=== PATIENT | female | born 1940 | race Caucasian/White ===

== ENCOUNTER 2016-12-18 09:51 | Emergency (ER) | payer OTHER ==
[~2016-12-18] VITALS: Ht 157.5 cm; Wt 69.4 kg
--- NOTE | ~2016-12-18 | EKG ---
[address] [address] ELECTROCARDIOGRAM REPORT Name: VANDANA MARIE [facility] [id number] Admission: 12/18/16 Attend Phys: Discharge: 12/18/16 Date of : 44 Report #: [id number] THIS REPORT FOR: //name// [facility] ED Test Date: 2016-12-18 Test Time: 09:48:41 Pat Name: VANDANA MARIE Department: Room: Gender: F Turner Machine Operator: SHEA : 1940 Requested By: Joni Medina Order Number: [id number] MD: Phoenix Bartholomew Measurements Intervals [place] Rate: 55 P: 91 [place]: 165 QRS: 72 QRSD: 93 T: 49 QT: 456 QTc: 437 Interpretive Statements Sinus rhythm Compared to ECG 08/29/2013 11:15:14 Atrial premature complex(es) no longer present Electronically Signed On 12-20-2016 13:09:37 CDT by Phoenix Bartholomew [email or web address] <ELECTRONICALLY SIGNED> By: Phoenix Bartholomew MD, [facility] 12/20/16 1309 Phoenix Bartholomew MD, [facility] /EPI
[~2016-12-18 09:51] MED LIST: ACETAMINOPHEN-1 EAC1 PO; AUGMENTIN 875-1 EACH PO; AUGMENTIN 875875 M1 PO; AZITHROMYCIN 2250 MG PO; ENBREL50 MG/1 M1 SQ; HYDROXYZINE HCL25 M2 GT; NORCO 5-325 TA1 EACH PO; PROPRANOLOL 1010 M1 PO; SYNTHROID25 MCG PO; TUSSIONEX PENN473 ML PO
[2016-12-18 11:01] LABS: ABSOLUTE NEUTROPHILS 4.4 thou/uL (1.4-8.2); BASOPHILS 0.6 % (0.0-2.0); EOSINOPHILS 3.2 % (0.0-3.0); HEMATOCRIT 40.6 % (37.0-47.0); HEMOGLOBIN 13.8 gm/dL (12.0-15.0); MANUAL DIFF NO; MCH 31.8 pg (26.0-34.0); MCHC 33.9 g/dL (28.0-37.0); MCV 93.6 fL (80.0-100.0); PLATELET COUNT 175 thou/uL (150-400); POLYS 73.2 % (36.0-66.0); RBC 4.34 mil/uL (4.20-5.00); RDW 14.4 % (10.5-14.5)
[2016-12-18 11:53] LABS: ANION GAP 5 mmol/L (7-16); BUN 14 mg/dL (7-18); CALCIUM 8.5 mg/dL (8.5-10.1); CHLORIDE 104 mmol/L (98-107); CO2 31 mmol/L (21-32); CREATININE 0.9 mg/dL (0.6-1.0); GLUCOSE 108 mg/dL (74-106); POTASSIUM 3.8 mmol/L (3.5-5.1); SODIUM 140 mmol/L (136-145)
[2016-12-18 12:00] LABS: ALBUMIN 3.6 g/dL (3.4-5.0); ALKALINE PHOSPHATASE 60 U/L (46-116); SGOT 13 U/L (15-37); SGPT 19 U/L (30-65); TOTAL BILIRUBIN 0.6 mg/dL (<0.1-1.0); TOTAL PROTEIN 7.1 g/dL (6.4-8.2); TROPONIN-I < 0.04 ng/mL (<0.04-0.07)
[2016-12-18] MEDS ORDERED: SENOKOT-S1 TA1 PO (13:01)
[2016-12-18 13:24] VITALS: BP 99/56
== END 2016-12-18 13:25 | disposition home or self-care (01) ==
LOC: ER 09:51
PROVIDERS: Physician Assistant
DX: R10.13 Epigastric pain (principal); R00.2 Palpitations; E89.0 Postprocedural hypothyroidism; F10.99 Alcohol use, unspecified with unspecified alcohol-induced disorder; Z90.49 Acquired absence of other specified parts of digestive tract

== ENCOUNTER 2017-03-24 09:31 | Emergency (ER) | payer OTHER ==
[~2017-03-24] VITALS: Ht 157.5 cm; Wt 61.2 kg
[~2017-03-24 09:31] MED LIST changes: +SENOKOT-S1 TA1 PO
[2017-03-24 10:17] LABS: ABSOLUTE NEUTROPHILS 4.9 thou/uL (1.4-8.2); BASOPHILS 0.6 % (0.0-2.0); EOSINOPHILS 1.6 % (0.0-3.0); HEMATOCRIT 39.8 % (37.0-47.0); HEMOGLOBIN 13.3 gm/dL (12.0-15.0); LYMPHOCYTES 12.6 % (24.0-44.0); MANUAL DIFF NO; MCH 31.6 pg (26.0-34.0); MCHC 33.5 g/dL (28.0-37.0); MCV 94.2 fL (80.0-100.0); MONOCYTES 8.4 % (1.0-8.0); PLATELET COUNT 201 thou/uL (150-400); POLYS 76.8 % (36.0-66.0); RBC 4.22 mil/uL (4.20-5.00); WBC 6.4 thou/uL (4.0-11.0)
[2017-03-24 10:28] LABS: CALCIUM 8.7 mg/dL (8.5-10.1); CREATININE 0.9 mg/dL (0.6-1.0); POTASSIUM 4.1 mmol/L (3.5-5.1)
[2017-03-24 10:34] LABS: ALBUMIN 3.7 g/dL (3.4-5.0); TOTAL BILIRUBIN 0.3 mg/dL (<0.1-1.0); TOTAL PROTEIN 7.4 g/dL (6.4-8.2)
[2017-03-24] MEDS ORDERED: DOXYCYCLINE 10100 MG PO (10:48)
[2017-03-24 11:08] VITALS: BP 128/48
== END 2017-03-24 11:12 | disposition home or self-care (01) ==
LOC: ER 09:31
PROVIDERS: Emergency Medicine
DX: L03.116 Cellulitis of left lower limb (principal); L03.115 Cellulitis of right lower limb; Z90.49 Acquired absence of other specified parts of digestive tract; F10.99 Alcohol use, unspecified with unspecified alcohol-induced disorder

== ENCOUNTER → 2017-03-25 | Outpatient (CLI) | payer OTHER ==
[~2017-03-25] MED LIST changes: +DOXYCYCLINE 10100 MG PO
== END ==
LOC: HYPER 07:13
DX: L97.812 Non-pressure chronic ulcer of other part of right lower leg with fat layer exposed (principal); L97.822 Non-pressure chronic ulcer of other part of left lower leg with fat layer exposed; Z85.72 Personal history of non-Hodgkin lymphomas; Z72.89 Other problems related to lifestyle

== ENCOUNTER → 2017-04-08 | Outpatient (CLI) | payer OTHER ==
[~2017-04-08] MED LIST changes: +LUNESTA2 MG PO; +NORCO 7.5-3251 EACH PO; +SYNTHROID125 MCG PO
== END ==
LOC: HYPER 06:55
DX: L97.812 Non-pressure chronic ulcer of other part of right lower leg with fat layer exposed (principal); L97.822 Non-pressure chronic ulcer of other part of left lower leg with fat layer exposed; Z72.89 Other problems related to lifestyle

== ENCOUNTER 2017-04-28 11:44 | Inpatient (IN) | payer OTHER ==
[~2017-04-28] VITALS: Ht 157.5 cm; Wt 69.3 kg
--- NOTE | ~2017-04-28 | HC ---
[facility] [place] [address] CONSULTATION Name: SANKET OCHOAMIGUELINAVANDANA KOHLER Room #: 416-P ADM IN M.R.#: [id number] Admission: 04/28/17 Attend Phys: Elie Hughes DO Discharge: Date of : 42 Report #: [id number] THIS REPORT FOR: //name// CC: KINDRA physician/PCP Elie Hughes REASON FOR CONSULTATION: I was asked to evaluate concerning cat bite and infection to the right wrist. HISTORY OF PRESENT ILLNESS: The patient is a 76-year-old with underlying history of cutaneous T-cell lymphoma, undergoing chemotherapy for such. She was bitten by her indoor cat 4 days ago. Developed increased pain and swelling and was seen in the emergency room yesterday and placed on Augmentin. It was recommended that she stay for further IV antibiotic therapy, but the patient refused and went home to return today for further care. No fever or chills, although she has had some sweats. Increased pain and swelling in the right wrist. The cat has all of the charts. The patient has remote tetanus vaccination. She is a nonsmoker with no significant alcohol intake. ALLERGIES: None known. MEDICATIONS: Include Zosyn. She was on Augmentin yesterday. Also takes daily chemotherapy for her cutaneous T-cell lymphoma. PAST MEDICAL HISTORY: Lymphoma, dysrhythmia, did not know the name of it. Peripheral vascular disease, status post stenting. She developed a pseudoaneurysm in her right groin that was evaluated and corrected approximately 3 weeks ago. REVIEW OF SYSTEMS: No cardiopulmonary, GI, or complaints. PHYSICAL EXAMINATION: VITAL SIGNS: Afebrile and hemodynamically stable. GENERAL: She was alert, cooperative, and pleasant, in no acute distress. SKIN: Multiple erythematous plaques to her upper extremities and lower extremities. She had ulcerations involving both pretibial lower legs, which are chronic. The right upper extremity had 2+ swelling about the hand and wrist along with forearm with surrounding cellulitis. Puncture lawson in the distal forearm. Most of her tenderness is over the right wrist with some fluctuance in the region. Pulses in the wrist were normal. Sensation in the fingers normal. Capillary refill normal. No axillary adenopathy. CHEST: Clear. HEART: Regular without murmur. ABDOMEN: Soft and nontender. LABORATORY STUDIES: Sedimentation rate 59, sodium 139, potassium 4.6, bicarbonate 27, creatinine 0.7. Lactate 0.8. Hemoglobin 11.3, white count 5.7, [address] [address] CONSULTATION Name: VANDANA MARIE Room #: 416-[facility] IN [facility]#: [id number] Admission: 04/28/17 Attend Phys: Elie Hughes DO Discharge: Date of : 42 Report #: [id number] platelet count 233,000. Blood cultures are negative today. X-ray of the wrist, no acute changes. She does have some degenerative arthritis. IMPRESSION: A 76-year-old immunosuppressed, undergoing treatment for cutaneous T-cell lymphoma, now with cat bite and I am concerned with tenosynovitis involving the right hand and forearm. The bite does not appear contiguous with her wrist joint. Recommend continuing IV antibiotic therapy. Zosyn was started today and we will continue this through the next 24 hours. We will obtain MRI scan of the right upper extremity to evaluate for abscess and further evaluate for tenosynovitis. We will vaccinate for tetanus and elevate the arm along with heat. If fluid collection is evident, we will need orthopedic surgery involvement. <ELECTRONICALLY SIGNED> By: Mir Bar MD 04/29/17 1208 [id number] Mir Bar MD /nt
--- NOTE | ~2017-04-28 | S ---
[facility] [address] [facility] [address] SURGICAL PATH RPT PROCEDURE Name: SANKET OCHOAALBERTTanmayVANDANA Room #: 416-P ADM IN M.R.#: [id number] Admission: 04/28/17 Date of : 44 Discharge: Report #: [id number] Path Case #: [id number] PATHOLOGY REPORT COLLECTION DATE: 04/30/2017 RECEIVED DATE: 04/30/2017 SUBMITTING PHYS: Dr. Mariangel Leon OTHER PHYS: Dr. Elie Hughes SPECIMEN(S) RECEIVED: A.Right dorsal forearm tenosynovitis * * * * * * * * * * * * FINAL DIAGNOSIS: Tissue, right dorsal forearm, debridement: - Marked acute inflammation along with abscess formation, history of cat bite. (IUV:miguel; 05/03/2017) PATHOLOGIST: Alyson Ortiz M.D. REPORT ELECTRONICALLY SIGNED BY: Alyson Ortiz M.D. DATE/TIME: 05/03/2017 14:46 * * * * * * * * * * * * GROSS PATHOLOGY: The specimen is received in formalin, labeled "Vandana Marie, tissue right dorsal forearm," and consists of multiple (more than 10) fragments of moreland-light brown soft tissue measuring 3.0 x 2.3 x 0.4 cm in aggregate dimensions. They are entirely submitted in cassette A1. (SDY; 04/30/2017) CLINICAL HISTORY: History of cat bite, T-cell lymphoma, tenosynovitis INITIAL CPT CODE(S): A; 52294 Professional services performed by [facility] at [facility] [address] [place], [place] [address] Technical services performed by [facility] at [address] [place] [address], [address] [address]. [facility] [address] [place] [address] SURGICAL PATH RPT PROCEDURE Name: VANDANA MARIE Room #: 416-P ADM IN M.R.#: [id number] Admission: 04/28/17 Date of : 44 Discharge: Report #: [id number] Path Case #: [id number] [facility] [address] [address] PHONE: [phone] DIRECTOR: Eleazar Moyer M.D. * * * END OF REPORT * * *
--- NOTE | ~2017-04-28 | O ---
[facility] [place] [address] OPERATIVE REPORT Name: VANDANA AMRIE Room #: 416-P [facility] IN M.R.#: [id number] Admission: 04/28/17 Attend Phys: Elie Hughes DO Discharge: Date of : 42 Report #: [id number] THIS REPORT FOR: //name// CC: KINDRA physician/PCP Elie Hughes DATE OF SERVICE: 04/30/2017 PREOPERATIVE DIAGNOSIS: Right dorsal forearm cellulitis/tenosynovitis. POSTOPERATIVE DIAGNOSIS: Right dorsal forearm cellulitis/tenosynovitis. PROCEDURE PERFORMED: Right dorsal forearm debridement and extensor compartment debridement specifically the second, third and fourth. SURGEON: Mariangel Leon MD. ANESTHESIA: General mask anesthesia. ESTIMATED BLOOD LOSS: Minimal. TOURNIQUET TIME: 19 minutes. COMPLICATIONS: None. CONDITION: Stable. DISPOSITION: To recovery room. SPECIMENS: Sent to pathology and microbiology. INDICATIONS: The patient is a 76-year-old female with the abovementioned diagnosis. She had a definite fluid collection and tenosynovitis with a cellulitis noted on MRI. The risks, benefits, alternatives, complications were discussed including but were not limited to infection, damage to blood vessels or nerves, inability to completely resolve the infection necessitating more surgery. Informed consent was obtained. The correct extremity was identified and labeled by myself. After verbal confirmation of the patient, as well as visual confirmation, a signed informed consent obtained. DESCRIPTION OF PROCEDURE: The patient was brought back to the operating room, placed on the operating table in supine position. She did not receive preoperative antibiotics. She did receive 2 grams of Ancef after cultures were obtained. The right upper extremity was sterilely prepped and draped in the usual fashion. A final timeout was taken to verify the correct patient, operative procedure, and operative site, all concurred. The arm was elevated [address] [address] OPERATIVE REPORT Name: VANDANA MARIE Room #: 416-P [facility] IN .R.#: [id number] Admission: 04/28/17 Attend Phys: Elie Hughes DO Discharge: Date of : 42 Report #: [id number] but was not exsanguinated and the tourniquet inflated. The entire procedure was done with the aid of 3.5 times loupe magnification. Next, approximately a 5 cm incision was made over the area of most prominent swelling at Ricardo tubercle. Dissection was carried down through the subcutaneous tissue with tenotomy scissors. There was a significant amount of inflammatory fluid around the tendon sheath. The third compartment was identified and incised. The tendon was debrided. There was a significant amount of tenosynovium that was debrided. The fourth compartment was identified and incised and portion of the second. The tendons were thoroughly debrided. There was a yellowish type tissue around them but most likely consistent with tenosynovitis. Once the area was thoroughly debrided, the area was thoroughly irrigated with 2 L of antibiotic saline. The wound was then closed over a deep drain. The deep drain was sutured in. The wound was closed with 4-0 nylon suture. The wound was infiltrated with approximately 5 mL of 0.25% Marcaine. The wound was dressed with Adaptic and sterile gauze. She was placed in a bulky compressive dressing and a volar slab splint. All fingers were pink with brisk capillary refill at the conclusion of the case. After deflation of tourniquet, all sponge, needle counts were correct. The patient transferred to postoperative recovery room in stable condition. By: 1533 1624 Mariangel Leon MD /nt
--- NOTE | ~2017-04-28 | HC ---
[facility] [place] [address] CONSULTATION Name: VANDANA MARIE Room #: 416-P ADM IN M.R.#: [id number] Admission: 04/28/17 Attend Phys: Elie Hughes DO Discharge: Date of : 42 Report #: [id number] THIS REPORT FOR: //name// CC: KINDRA physician/PCP Elie Hughes DATE OF SERVICE: 04/29/2017 REASON FOR CONSULTATION: Right upper extremity cellulitis, possible tenosynovitis. HISTORY OF PRESENT ILLNESS: The patient is a 76-year-old right-hand dominant female who presented to the Emergency Department on the date of admission complaining of swelling and redness and pain in her right dorsal hand and forearm, who was bitten by her cat on Wednesday and reporting increased redness, swelling and pain predominantly since for a few days. She originally was seen in the Emergency Department on 09/25/2016 and apparently left against advice. She reported she needed to get home to get stuff ready for her to be able to stay in the hospital. She reports the redness potentially has improved a very small amount since her admission yesterday and the IV antibiotics that ensued. She reports dorsal hand and wrist pain and pain with movement of her fingers. She takes p.o. chemotherapy for T-cell lymphoma. She spoken with her oncologist who recommended she skipped a treatment. She also has open sores on her bilateral lower extremities for 2 months and she sees Dr. Elizondo at the wound care clinic. REVIEW OF SYSTEMS: CONSTITUTIONAL: Denies any fevers or chills. NEUROLOGIC: Denies numbness or tingling. MUSCULOSKELETAL: See HPI. PAST MEDICAL HISTORY: Significant for T-cell lymphoma, cardiac arrhythmia. ALLERGIES: No known drug allergies. SOCIAL HISTORY: Denies smoking or drinking alcohol. She does not use any ambulatory aids. She is right hand dominant. Lives by herself, has a cat. HOME MEDICATIONS: Include metoprolol, hydrocodone, clopidogrel, levothyroxine, zolpidem, propranolol, and Lunesta. PAST SURGICAL HISTORY: She has had a hysterectomy and thyroid procedure. PHYSICAL EXAMINATION: GENERAL: The patient is alert and oriented. She interacts appropriately. She is a well-developed, well-nourished female in no acute distress. [address] [address] CONSULTATION Name: VANDANA MARIE Room #: 416-P [facility] IN M.R.#: [id number] Admission: 04/28/17 Attend Phys: Elie Hughes DO Discharge: Date of : 42 Report #: [id number] VITAL SIGNS: Most recent vital signs show temperature of 36.1, heart rate 76, respiration rate 18, blood pressure 99/59. EXTREMITIES: Examination of her right upper extremity, she has a significant amount of dorsal edema to the wrist and forearm appears to be centered at the second and third compartments just at the level of the wrist. She is distally neurovascularly intact. She has a 2+ radial pulse. She has two small puncture wounds volarly on her forearm with no surrounding erythema. She does appear to have a fluid collection dorsally as above-mentioned. She is able to move her fingers, flexion and extension is intact, although not full due to pain. The area of erythema extends approximately 15 x 5 cm. There is no tenderness to palpation at her elbow. No significant pain with wrist motion. LABORATORY STUDIES: Done on 04/29/2017 show white blood cell count of 4.8, hemoglobin 11, hematocrit 32.4, platelet count 216. Sedimentation rate done on 04/28/2017 is elevated at 59. Her basic metabolic panel is grossly normal except for a CRP at 86, which is significantly elevated. IMAGING STUDIES: MRI was reviewed as well as the report was reviewed, which did show dorsal extensor tenosynovitis, predominantly within the second and third compartment also to a lesser degree of the fourth compartment, no osteomyelitis or evidence of septic arthritis is noted. IMPRESSION AND PLAN: Right dorsal forearm and wrist cellulitis with extensor tenosynovitis. I discussed the diagnosis as well as treatment options. We discussed the option of taking her to surgery tonight to open up the area making an incision and clean out any infection. We also discussed possibility of observation overnight and putting her on to the schedule tomorrow morning. I did discuss that I will be leaving town and if one of my partners can potentially take over her care, but I would prefer to reevaluate her and put her on the schedule for tomorrow morning, in that way I can take care of her if she needs operative treatment. We discussed the risks, benefits in terms of complications including inability to resolve the infection and wound healing problems predominantly. I will allow her to eat and drink today and then keep her n.p.o. after midnight. She is tentatively on the surgery schedule for tomorrow, Wednesday at 7:30 in the morning. I will also hold her Plavix tonight. Questions were encouraged and answered to the best of my ability. Again, I will evaluate her first thing in the morning. By: 1650 0435 Mariangel Leon MD /nt
--- NOTE | ~2017-04-28 | EKG ---
[address] [address] ELECTROCARDIOGRAM REPORT Name: VANDANA MARIE Room #: 416- ADM IN M.R.#: [id number] Admission: 04/28/17 Attend Phys: Elie Hughes DO Discharge: Date of : 42 Report #: [id number] THIS REPORT FOR: //name// [facility] Test Date: 2017-04-30 Test Time: 07:38:06 Pat Name: VANDANA MARIE Department: Room: 416 Gender: F Training And Development Assistant: STEVE : 1940 Requested By: Mariangel Leon Order Number: [id number] MD: Phoenix Bartholomew Measurements Intervals [place] Rate: 71 P: 59 [place]: 163 QRS: 75 QRSD: 89 T: 35 QT: 416 QTc: 453 Interpretive Statements Sinus rhythm Normal tracing Compared to ECG 12/18/2016 09:48:41 No significant changes Electronically Signed On 04-30-2017 7:52:55 SHAPER OPERATOR by Phoenix Bartholomew [email or web address] <ELECTRONICALLY SIGNED> By: Phoenix Bartholomew MD, [facility] 04/30/17 0752 7 Phoenix Bartholomew MD, [facility] /EPI
[~2017-04-28 11:44] MED LIST changes: +AMBIEN 5 MG TABL5 M1 PO; +AUGMENTIN 500-1 EACH PO; +HYDROCODON-ACE1 EAC8 PO; +PLAVIX 75 MG TA75 M1 PO; +TOPROL XL25 MG PO
[2017-04-28 11:45] VITALS: BP 106/61
[2017-04-28 12:38] LABS: ABSOLUTE NEUTROPHILS 4.2 thou/uL (1.4-8.2); BASOPHILS 0.5 % (0.0-2.0); EOSINOPHILS 2.6 % (0.0-3.0); HEMATOCRIT 34.1 % (37.0-47.0); HEMOGLOBIN 11.3 gm/dL (12.0-15.0); LYMPHOCYTES 12.7 % (24.0-44.0); MCH 30.8 pg (26.0-34.0); MCHC 33.2 g/dL (28.0-37.0); MCV 92.9 fL (80.0-100.0); MONOCYTES 10.6 % (1.0-8.0); PLATELET COUNT 233 thou/uL (150-400); POLYS 73.6 % (36.0-66.0); RBC 3.68 mil/uL (4.20-5.00); RDW 13.8 % (10.5-14.5); WBC 5.7 thou/uL (4.0-11.0)
[2017-04-28 13:00] LABS: MANUAL DIFF NO
[2017-04-28 13:14] LABS: CALCIUM 8.5 mg/dL (8.5-10.1); CREATININE 0.7 mg/dL (0.6-1.0)
[2017-04-28 13:15] LABS: POTASSIUM 4.6 mmol/L (3.5-5.1)
[2017-04-28 13:37] VITALS: BP 106/61
[2017-04-28 14:04] VITALS: BP 108/59
[2017-04-28 14:30] VITALS: BP 121/54
[2017-04-28 20:23] VITALS: BP 84/51
[2017-04-29 00:01] VITALS: BP 83/51
[2017-04-29 03:15] VITALS: BP 100/53
[2017-04-29 08:00] VITALS: BP 100/67
[2017-04-29 09:10] LABS: ABSOLUTE NEUTROPHILS 3.2 thou/uL (1.4-8.2); BASOPHILS 0.9 % (0.0-2.0); EOSINOPHILS 3.9 % (0.0-3.0); HEMATOCRIT 32.4 % (37.0-47.0); LYMPHOCYTES 18.3 % (24.0-44.0); MANUAL DIFF NO; MCH 31.5 pg (26.0-34.0); MCV 92.5 fL (80.0-100.0); MONOCYTES 11.5 % (1.0-8.0); PLATELET COUNT 216 thou/uL (150-400); POLYS 65.4 % (36.0-66.0); RBC 3.51 mil/uL (4.20-5.00); RDW 13.7 % (10.5-14.5); WBC 4.8 thou/uL (4.0-11.0)
[2017-04-29 09:20] LABS: CALCIUM 8.2 mg/dL (8.5-10.1); CREATININE 0.6 mg/dL (0.6-1.0); POTASSIUM 3.7 mmol/L (3.5-5.1)
[2017-04-29 11:35] VITALS: BP 99/59
[2017-04-29 16:00] VITALS: BP 91/42
[2017-04-29 20:14] VITALS: BP 91/72
[2017-04-30] VITALS (10 sets, daily range): BP systolic 96–120; BP diastolic 36–76
[2017-04-30 04:24] LABS: HEMATOCRIT 31.3 % (37.0-47.0); HEMOGLOBIN 10.4 gm/dL (12.0-15.0); MCH 30.9 pg (26.0-34.0); MCHC 33.1 g/dL (28.0-37.0); MCV 93.4 fL (80.0-100.0); PLATELET COUNT 212 thou/uL (150-400); RBC 3.35 mil/uL (4.20-5.00); RDW 13.8 % (10.5-14.5)
[2017-04-30 04:34] LABS: MANUAL DIFF YES
[2017-04-30 04:35] LABS: CALCIUM 7.4 mg/dL (8.5-10.1); CREATININE 0.8 mg/dL (0.6-1.0); POTASSIUM 3.9 mmol/L (3.5-5.1)
[2017-04-30 06:21] LABS: ABSOLUTE NEUTROPHILS 2.5 thou/uL (1.4-8.2); TOTAL CELL COUNT 100
[2017-05-01] VITALS: BP 90/55
[2017-05-01 05:00] VITALS: BP 93/50
[2017-05-01 06:29] LABS: ABSOLUTE NEUTROPHILS 2.7 thou/uL (1.4-8.2); BASOPHILS 0.9 % (0.0-2.0); EOSINOPHILS 6.2 % (0.0-3.0); HEMOGLOBIN 10.2 gm/dL (12.0-15.0); LYMPHOCYTES 15.4 % (24.0-44.0); MCH 30.9 pg (26.0-34.0); MCV 93.6 fL (80.0-100.0); PLATELET COUNT 213 thou/uL (150-400); POLYS 66.5 % (36.0-66.0); RBC 3.31 mil/uL (4.20-5.00); RDW 13.6 % (10.5-14.5); WBC 4.1 thou/uL (4.0-11.0)
[2017-05-01 06:31] LABS: MANUAL DIFF NO
[2017-05-01 06:35] LABS: CALCIUM 7.7 mg/dL (8.5-10.1); CREATININE 0.6 mg/dL (0.6-1.0); POTASSIUM 3.8 mmol/L (3.5-5.1)
[2017-05-01 08:00] VITALS: BP 108/56
[2017-05-01 15:04] VITALS: BP 111/54
[2017-05-01 21:30] VITALS: BP 136/75
[2017-05-02 05:04] VITALS: BP 106/66
[2017-05-02 08:01] VITALS: BP 135/105
[2017-05-02 16:05] VITALS: BP 128/77
[2017-05-02 20:50] VITALS: BP 110/65
[2017-05-03] VITALS (7 sets, daily range): BP systolic 89–141; BP diastolic 54–84
[2017-05-03] MEDS ORDERED: INVANZ1 GM IV (12:40)
[2017-05-03] MEDS ORDERED: HYDROCODON-ACE1 EAC8 PO (15:53)
[2017-05-05] MEDS ORDERED: VIT C-ROSE HIP500 MG PO (08:50)
[2017-05-05] MEDS ORDERED: OSTERA TABLET1 EAC1 PO (08:50)
[2017-05-05] MEDS ORDERED: NEPHROCAPS SOFT1 CAP PO (08:52)
== END 2017-05-03 17:30 | disposition home health service (06) | DRG 500 ==
LOC: ER 11:44 → 4N 12:18 → ENTRNSPT 05-03 17:32
PROVIDERS: Family Medicine; Physician Assistant
PROC: 0LB50ZZ Excision of Right Lower Arm and Wrist Tendon, Open Approach (ICD-10-PCS; principal; 2017-04-30)
DX: M65.131 Other infective (teno)synovitis, right wrist (principal); E43 Unspecified severe protein-calorie malnutrition; L03.113 Cellulitis of right upper limb; C84.A0 Cutaneous T-cell lymphoma, unspecified, unspecified site; L97.929 Non-pressure chronic ulcer of unspecified part of left lower leg with unspecified severity; L97.919 Non-pressure chronic ulcer of unspecified part of right lower leg with unspecified severity; I73.9 Peripheral vascular disease, unspecified; S61.551A Open bite of right wrist, initial encounter; I10 Essential (primary) hypertension; E78.5 Hyperlipidemia, unspecified; Z92.21 Personal history of antineoplastic chemotherapy; Z90.710 Acquired absence of both cervix and uterus; W55.01XA Bitten by cat, initial encounter; Y93.89 Activity, other specified; Y92.89 Other specified places as the place of occurrence of the external cause; Y99.8 Other external cause status; Z23 Encounter for immunization; Z68.27 Body mass index [BMI] 27.0-27.9, adult
CPT/HCPCS: 10790; 27001; 50010; 50101; 50386; 51736; 56526; 57006; 57091; 62110; 62900

== ENCOUNTER → 2017-05-04 | Outpatient (CLI) | payer OTHER ==
[~2017-05-04] MED LIST changes: +INVANZ1 GM IV; +NEPHROCAPS SOFT1 CAP PO; +OSTERA TABLET1 EAC1 PO; +VIT C-ROSE HIP500 MG PO
[2017-05-04 08:05] VITALS: BP 115/48
[2017-05-04 08:56] LABS: HEMATOCRIT 31.9 % (37.0-47.0); HEMOGLOBIN 10.5 gm/dL (12.0-15.0); MCV 93.9 fL (80.0-100.0); RBC 3.4 mil/uL (4.20-5.00); RDW 13.6 % (10.5-14.5); WBC 6.6 thou/uL (4.0-11.0)
[2017-05-04 09:10] LABS: ALBUMIN 2.9 g/dL (3.4-5.0); CALCIUM 8.1 mg/dL (8.5-10.1); CREATININE 0.8 mg/dL (0.6-1.0); POTASSIUM 3.2 mmol/L (3.5-5.1); TOTAL BILIRUBIN 0.3 mg/dL (<0.1-1.0); TOTAL PROTEIN 6.9 g/dL (6.4-8.2)
[2017-05-04 10:58] VITALS: BP 115/48
== END ==
LOC: OPONC 05-03 17:15
PROVIDERS: Specialist
DX: L03.90 Cellulitis, unspecified (principal)
CPT/HCPCS: 95000

== ENCOUNTER → 2017-05-05 | Outpatient (CLI) | payer OTHER ==
[2017-05-05 08:20] VITALS: BP 113/64
== END ==
LOC: OPONC 01:06
DX: L03.90 Cellulitis, unspecified (principal)
CPT/HCPCS: 95000

== ENCOUNTER → 2017-05-06 | Outpatient (CLI) | payer OTHER | LOC: OPONC | DX: L03.90 Cellulitis, unspecified (principal) | CPT/HCPCS: 95000 ==

== ENCOUNTER → 2017-05-07 | Outpatient (CLI) | payer OTHER | LOC: OPONC | DX: L03.90 Cellulitis, unspecified (principal) | CPT/HCPCS: 95000 ==

== ENCOUNTER → 2017-05-08 | Outpatient (CLI) | payer OTHER | LOC: OPONC 04:26 | DX: L03.90 Cellulitis, unspecified (principal) | CPT/HCPCS: 95000 ==

== ENCOUNTER → 2017-05-09 | Outpatient (CLI) | payer OTHER | LOC: OPONC 04:39 | DX: L03.90 Cellulitis, unspecified (principal) | CPT/HCPCS: 95000 ==

== ENCOUNTER → 2017-05-10 | Outpatient (CLI) | payer OTHER ==
[2017-05-10 08:15] VITALS: BP 113/59
[2017-05-10 08:58] LABS: HEMATOCRIT 38.3 % (37.0-47.0); HEMOGLOBIN 12.7 gm/dL (12.0-15.0); MCH 30.5 pg (26.0-34.0); MCHC 33.1 g/dL (28.0-37.0); MCV 92.2 fL (80.0-100.0); RBC 4.15 mil/uL (4.20-5.00); RDW 13.8 % (10.5-14.5); WBC 6.2 thou/uL (4.0-11.0)
[2017-05-10 09:11] LABS: ALBUMIN 3.3 g/dL (3.4-5.0); CREATININE 0.7 mg/dL (0.6-1.0); POTASSIUM 3.9 mmol/L (3.5-5.1); TOTAL BILIRUBIN 0.3 mg/dL (<0.1-1.0); TOTAL PROTEIN 7.7 g/dL (6.4-8.2)
== END ==
LOC: OPONC 01:35
PROVIDERS: Specialist
DX: L03.90 Cellulitis, unspecified (principal)
CPT/HCPCS: 95000

== ENCOUNTER → 2017-05-11 | Outpatient (CLI) | payer OTHER | LOC: HYPER | DX: L97.822 Non-pressure chronic ulcer of other part of left lower leg with fat layer exposed (principal); L97.812 Non-pressure chronic ulcer of other part of right lower leg with fat layer exposed; Z85.72 Personal history of non-Hodgkin lymphomas; Z72.89 Other problems related to lifestyle ==

== ENCOUNTER → 2017-05-12 | Outpatient (CLI) | payer OTHER ==
[2017-05-12 08:45] VITALS: BP 100/70
== END ==
LOC: OPONC 00:15
DX: L03.90 Cellulitis, unspecified (principal)
CPT/HCPCS: 95000

== ENCOUNTER → 2017-05-13 | Outpatient (CLI) | payer OTHER ==
[2017-05-13 14:51] VITALS: BP 100/49
== END ==
LOC: OPONC 01:12
DX: L03.90 Cellulitis, unspecified (principal)
CPT/HCPCS: 95000

== ENCOUNTER → 2017-05-14 | Outpatient (CLI) | payer OTHER ==
[2017-05-14 08:17] VITALS: BP 98/70
[2017-05-14 09:07] VITALS: BP 98/70
== END ==
LOC: OPONC 00:19
DX: L03.90 Cellulitis, unspecified (principal)
CPT/HCPCS: 95000

== ENCOUNTER → 2017-06-28 | Outpatient (CLI) | payer OTHER | LOC: HYPER 07:04 | DX: L97.822 Non-pressure chronic ulcer of other part of left lower leg with fat layer exposed (principal); L97.812 Non-pressure chronic ulcer of other part of right lower leg with fat layer exposed; Z85.828 Personal history of other malignant neoplasm of skin; Z90.49 Acquired absence of other specified parts of digestive tract; Z72.89 Other problems related to lifestyle ==

== ENCOUNTER → 2017-07-20 | Outpatient (CLI) | payer OTHER | LOC: HYPER 06:56 | DX: L97.822 Non-pressure chronic ulcer of other part of left lower leg with fat layer exposed (principal); L97.812 Non-pressure chronic ulcer of other part of right lower leg with fat layer exposed; C85.85 Other specified types of non-Hodgkin lymphoma, lymph nodes of inguinal region and lower limb; Z85.828 Personal history of other malignant neoplasm of skin; Z72.89 Other problems related to lifestyle ==

== ENCOUNTER 2018-01-20 03:53 | Inpatient (IN) | payer OTHER ==
[~2018-01-20] VITALS: Ht 157.5 cm; Wt 68.0 kg
--- NOTE | ~2018-01-20 | EKG ---
[address] [address] ELECTROCARDIOGRAM REPORT Name: VANDANA QUINTEROS Room #: 430[facility] IN M.R.#: [id number] Admission: 01/20/18 Attend Phys: Jacinto Soto MD Discharge: 01/20/18 Date of : 42 Report #: [id number] THIS REPORT FOR: //name// [facility] Test Date: 2018-01-20 Test Time: 14:48:13 Pat Name: VANDANA QUINTEROS Department: Room: 430 Gender: F Motor Coach Operator: Blayne GREEN : 1940 Requested By: Jacinto Soto Order Number: [id number] MD: Phoenix Bartholomew Measurements Intervals [place] Rate: 96 P: 64 [place]: 142 QRS: 92 QRSD: 76 T: 20 QT: 309 QTc: 391 Interpretive Statements Sinus rhythm Atrial premature complex Right axis deviation Compared to ECG 04/30/2017 07:38:06 Atrial premature complex(es) now present Right-axis deviation now present Electronically Signed On 01-21-2018 8:24:02 CDT by Phoenix Bartholomew [email or web address] <ELECTRONICALLY SIGNED> By: Phoenix Bartholomew MD, [facility] 01/21/18 0824 1448 1448 Phoenix Bartholomew MD, [facility] /EPI
[2018-01-20 03:55] VITALS: BP 142/72
[2018-01-20 04:05] LABS: ABSOLUTE NEUTROPHILS 7.3 thou/uL (1.4-8.2); BASOPHILS 1.5 % (0.0-2.0); EOSINOPHILS 1.4 % (0.0-3.0); HEMATOCRIT 40.4 % (37.0-47.0); HEMOGLOBIN 13.3 gm/dL (12.0-15.0); LYMPHOCYTES 22.1 % (24.0-44.0); MCH 30.9 pg (26.0-34.0); MCHC 32.9 g/dL (28.0-37.0); MCV 93.9 fL (80.0-100.0); MONOCYTES 3.7 % (1.0-8.0); PLATELET COUNT 347 thou/uL (150-400); POLYS 71.3 % (36.0-66.0); RBC 4.31 mil/uL (4.20-5.00); RDW 19.2 % (10.5-14.5); WBC 10.2 thou/uL (4.0-11.0)
[2018-01-20 04:11] LABS: CALCIUM 8.4 mg/dL (8.5-10.1); POTASSIUM 3.1 mmol/L (3.5-5.1)
[2018-01-20 04:17] LABS: ALBUMIN 3.4 g/dL (3.4-5.0); TOTAL BILIRUBIN 0.3 mg/dL (<0.1-1.0); TOTAL PROTEIN 7.2 g/dL (6.4-8.2)
[2018-01-20 10:04] VITALS: BP 122/62
[2018-01-20 10:22] VITALS: BP 122/62
[2018-01-20 11:14] VITALS: BP 78/64
== END 2018-01-20 19:00 | DRG 840 ==
LOC: ER 03:53 → EROBS 06:34 → 4E 06:34
PROVIDERS: Emergency Medicine
DX: C81.70 Other Hodgkin lymphoma, unspecified site (principal); K63.1 Perforation of intestine (nontraumatic); R18.8 Other ascites; E89.0 Postprocedural hypothyroidism; E87.6 Hypokalemia; Z66 Do not resuscitate; I10 Essential (primary) hypertension; Z92.21 Personal history of antineoplastic chemotherapy; Z90.49 Acquired absence of other specified parts of digestive tract; Z90.710 Acquired absence of both cervix and uterus; Z87.891 Personal history of nicotine dependence; Z79.899 Other long term (current) drug therapy
CPT/HCPCS: 10783